=== PATIENT | male | born 1945 | race Hispanic/Latino ===

== ENCOUNTER → 2018-12-22 | Outpatient (CLI) | payer OTHER | END | disposition home or self-care (01) | LOC: SHCH 10:48 | PROVIDERS: ATTEND Internal Medicine Cardiovascular Disease | DX: I65.23 Occlusion and stenosis of bilateral carotid arteries (principal); I11.9 Hypertensive heart disease without heart failure; I35.8 Other nonrheumatic aortic valve disorders; R06.00 Dyspnea, unspecified | CPT/HCPCS: 93306; 93880 ==

== ENCOUNTER → 2019-01-04 | Outpatient (CLI) | payer OTHER ==
[~2019-01-04] MED LIST: ALBUTEROL SULFATE 0.083% 2.5 MG/3 ML INH IH ONE
== END | disposition home or self-care (01) ==
LOC: RESP 08:55
PROVIDERS: ATTEND Internal Medicine Cardiovascular Disease
DX: R06.00 Dyspnea, unspecified (principal)
CPT/HCPCS: 94060; 94727; 94729

== ENCOUNTER → 2019-02-20 | Outpatient (CLI) | payer OTHER ==
[~2019-02-20] VITALS: Ht 167.6 cm; Wt 81.6 kg
[~2019-02-20] MED LIST changes: -ALBUTEROL SULFATE 0.083% 2.5 MG/3 ML INH IH ONE; +REGADENOSON 0.4 MG/5 ML PF SYG IVP SCH
== END | disposition home or self-care (01) ==
LOC: SHCH 08:23
PROVIDERS: ATTEND Internal Medicine Cardiovascular Disease
DX: I25.10 Atherosclerotic heart disease of native coronary artery without angina pectoris (principal); I10 Essential (primary) hypertension
CPT/HCPCS: 78452; 93017; 96374; A9500 ×2; J2785

== ENCOUNTER 2019-03-09 05:34 | Observation (INO) | payer OTHER ==
[2019-03-06 13:06] VITALS: BP 178/87
[2019-03-06 13:15] LABS: BASOPHILS % (AUTO) 0.4 % (0.0-5.0); EOSINOPHILS % (AUTO) 1.3 % (0.0-8.0); HEMATOCRIT 38.1 % (42-54); LYMPHOCYTES % (AUTO) 29.5 % (21.0-51.0); MEAN CORPUSCULAR HEMOGLOBIN 32.8 pg (27.0-33.0); MEAN CORPUSCULAR HGB CONC 34.6 g/dL (32.0-36.0); MEAN CORPUSCULAR VOLUME 94.9 fL (79-99); MONOCYTES % (AUTO) 5.9 % (3.0-13.0); NEUTROPHILS % (AUTO) 62.9 % (40.0-77.0); PLATELET COUNT (AUTO) 195 K/uL (130-400); RED BLOOD CELL COUNT(AUTO) 4.01 MIL/uL (4.50-6.20); RED CELL DISTRIBUTION WIDTH 12.9 % (11.0-15.5); WHITE BLOOD COUNT (AUTO) 7.3 K/uL (4.8-10.8)
[2019-03-06 13:15] LABS: APPEARANCE,URINE Clear (CLEAR); BILIRUBIN,URINE Negative (NEGATIVE); COLOR,URINE Yellow (YELLOW); GLUCOSE, URINE (UA) Negative (NEGATIVE); KETONES,URINE Negative (NEGATIVE); LEUKOCYTE ESTERASE ,URINE Large (NEGATIVE); NITRATE,URINE Negative (NEGATIVE); OCCULT BLOOD,URINE Negative (NEGATIVE); PROTEIN,URINE Negative (NEGATIVE)
[2019-03-06 13:19] LABS: BACTERIA,URINE Rare /HPF (None Seen); RBC,URINE 0-1 /HPF (0-1); SQUAMOUS EPITHELIAL CELL,UR Rare /HPF (0-2)
[2019-03-06 13:27] LABS: INR 0.99 (0.85-1.15); PARTIAL THROMBOPLASTIN TIME 27.5 SEC (26.3-35.5); PROTHROMBIN TIME 10.4 SEC (9.6-11.6)
[2019-03-06 13:28] LABS: CREATININE 1.2 mg/dL (0.5-1.5); POTASSIUM 4.5 mmol/L (3.5-5.1)
--- NOTE | 2019-03-08 14:18 | NUR ---
ABNORMAL UA REPORTED TO DR. TERRAZAS, NO NEW ORDERS, PROCEED WITH PROCEDURE.
[2019-03-09] VITALS (10 sets, daily range): BP systolic 137–161; BP diastolic 70–86
[~2019-03-09] VITALS: Ht 170.2 cm; Wt 80.7 kg
[~2019-03-09 05:34] MED LIST changes: +AMLO2.5T4 PO; +ASPI-1012 PO; +FENO160T16 PO; +GABA-529 PO; +GLIP1TAB6 PO; +LOSA100T58 PO; +OMEP40CA37 PO; +PRAV40TA3 PO; -REGADENOSON 0.4 MG/5 ML PF SYG IVP SCH
[2019-03-09] MEDS ORDERED: SODIUM CHLORIDE 0.9% 1000ML 1,000 ML IV ONE (06:10)
--- NOTE | 2019-03-09 06:41 | NUR ---
BOTH PATIENT AND RECEIVED TEACHING ON EXPECTATIONS DURING STAY. BOTH VERBALIZED UNDERSTANDING. PATIENT DENIES ANY SOB OR CHEST PAIN AT THIS TIME.TEACHING ON IMPORTANCE POST PROCEDURE ON BEING ON BEDREST TO PREVENT BLEEDING AND TO USE CALL DEVLIN IS NEEDING ASSISTANCE. BOTH VERBALIZED UNDERSTANDING AND AGREED TO ALL.
[2019-03-09] MEDS ORDERED: LIDOCAINE HCL 2% 20ML ONE (07:11)
[2019-03-09] MEDS ORDERED: IOHEXOL-350 50ML VIAL IV ONE ×2 (07:11→08:16)
[2019-03-09] MEDS ORDERED: SODIUM BICARB 50MEQ 50ML VIAL ONE (07:11)
[2019-03-09] MEDS ORDERED: NITROGLYCERIN 5 MG/ML 10 ML VIAL IV ONE (07:11)
[2019-03-09] MEDS ORDERED: IOHEXOL 350 MG/ML 100ML INFUS..BTL IV ONE (07:11)
[2019-03-09] MEDS ORDERED: HEPARIN SODIUM 1000UNIT/ML 10ML VIAL ONE (07:11)
[2019-03-09] MEDS ORDERED: MEPERIDINE-PF 25 MG/ML SYG ONE (07:47)
[2019-03-09] MEDS ORDERED: MIDAZOLAM HCL 1 MG/ML 2ML VIAL ONE (07:47)
[2019-03-09] MEDS ORDERED: IOHEXOL-350 75 ML VIAL IV ONE (08:26)
[2019-03-09] MEDS ORDERED: CLOPIDOGREL BISULFATE 300 MG TAB ONE (08:58)
[2019-03-09] MEDS ORDERED: SODIUM CHLORIDE 0.9% 1000ML 1,000 ML IV SCH (09:07)
[2019-03-09] MEDS ORDERED: ACETAMINOPHEN-CODEINE 300/30MG TAB PO PRN ×2 (09:15)
[2019-03-09] MEDS ORDERED: ALPRAZOLAM 0.5 MG TABLET PO PRN (09:15)
[2019-03-09] MEDS ORDERED: ONDANSETRON HCL 4 MG/2 ML VIAL IVP PRN (09:15)
[2019-03-09] MEDS ORDERED: DEXTROSE 50%-WATER 50 ML DISP.SYRIN IV PRN (09:15)
--- NOTE | 2019-03-09 09:43 | NUR ---
STATUS PT RECEIVED FROM RESIDENTIAL SUPERVISOR VIA BED, S/P C STENT X [address] Lionel TERRAZAS. RT GROIN PER CLOSE, DSG DRY & INTACT. NO BLEEDING, NO HEMATOMA NOTED. PUNCTURES SITE SOFT, NON-TENDER. (+) STRONG PEDAL PULSES BILATERALLY. BLE PINK & WARM TO TOUCH. PT INFORMED TO MAINTAIN BEDREST X 8 HRS. A/O X 3. NO SOB. NO DISTRESS NOTED. DENIES CHEST PAIN OR DISCOMFORT. DENIES INCISIONAL PAIN. TELE: SR 60s. DENIES N/V AND/OR DIARRHEA. URINAL @ BEDSIDE. 0.9% NACL @ 100 ML/HR X 8 HRS. ORIENTED TO RM. SIDE RAILS UP X 4. BED @ LOWEST LEVEL. INSTRUCTED TO CALL FOR ASSISTANCE. CALL CLAUS W/IN REACH.
[2019-03-09] MEDS: INSULIN HUMULIN R 100 UNIT/ML 3ML SQ SCH ×2 (15:45→20:44)
[2019-03-09] MEDS: GABAPENTIN 100 MG CAPSULE PO SCH (20:29)
[2019-03-09] MEDS ORDERED: SIMVASTATIN 20 MG TABLET PO SCH (21:00)
[2019-03-09] MEDS ORDERED: PANTOPRAZOLE SODIUM 40 MG TABLET.DR PO SCH (21:00)
[2019-03-09] MEDS ORDERED: AMLODIPINE BESYLATE 2.5 MG TAB PO SCH (21:00)
[2019-03-10 03:00] VITALS: BP 137/70
[2019-03-10 03:50] LABS: HEMATOCRIT 35.7 % (42-54); MEAN CORPUSCULAR HEMOGLOBIN 33.3 pg (27.0-33.0); MEAN CORPUSCULAR HGB CONC 35.6 g/dL (32.0-36.0); MEAN CORPUSCULAR VOLUME 93.5 fL (79-99); PLATELET COUNT (AUTO) 187 K/uL (130-400); RED BLOOD CELL COUNT(AUTO) 3.82 MIL/uL (4.50-6.20); RED CELL DISTRIBUTION WIDTH 12.7 % (11.0-15.5); WHITE BLOOD COUNT (AUTO) 6.3 K/uL (4.8-10.8)
[2019-03-10 04:01] LABS: POTASSIUM 3.9 mmol/L (3.5-5.1)
[2019-03-10] MEDS: INSULIN HUMULIN R 100 UNIT/ML 3ML SQ SCH (06:32)
[2019-03-10 07:00] VITALS: BP 137/71
[2019-03-10] MEDS ORDERED: CLOPIDOGREL BISULFATE 75 MG TAB PO SCH (09:00)
[2019-03-10] MEDS ORDERED: FENOFIBRATE 160 MG PO SCH (09:00)
[2019-03-10] MEDS ORDERED: ASPIRIN 81MG TAB.CHEW PO SCH (09:00)
[2019-03-10] MEDS ORDERED: LOSARTAN 100 MG TABLET PO SCH (09:00)
[2019-03-10] MEDS: GABAPENTIN 100 MG CAPSULE PO SCH (09:32)
[2019-03-10 11:00] VITALS: BP 132/72
[2019-03-10] MEDS ORDERED: CLOP75TA14 PO (12:21)
[2019-03-10] MEDS ORDERED: AEC81 PO (12:21)
[2019-03-10] MEDS ORDERED: PANT40TA25 PO (12:22)
== END 2019-03-10 13:23 | disposition home or self-care (01) ==
LOC: DAH 05:34 → INTOOBSV 05:35 → DAH 05:35 → OBSVTOIN 05:35 → DAHIP 05:35 → 2DH 09:58
PROVIDERS: ADMIT Internal Medicine; ATTEND Internal Medicine
DX: I25.119 Atherosclerotic heart disease of native coronary artery with unspecified angina pectoris (principal); I10 Essential (primary) hypertension; E11.9 Type 2 diabetes mellitus without complications; E78.2 Mixed hyperlipidemia; K21.9 Gastro-esophageal reflux disease without esophagitis; Z79.899 Other long term (current) drug therapy; Z79.01 Long term (current) use of anticoagulants
CPT/HCPCS: 36415 ×2; 71045; 80048 ×2; 80061; 81001; 82948 ×5; 85025; 85027; 85610; 85730; 93005; 93458; 96372 ×2; A4606; C1725; C1760; C1769; C1874 ×3; C1887 ×2; C1894 ×2; C9600 ×2; G0378 ×32; J1644 ×2; J1815 ×2; J2175; J2250; J3490 ×3; J7030; Q9965; Q9967 ×3; 99156; 99157

== ENCOUNTER → 2019-08-17 | Outpatient (CLI) | payer OTHER ==
[~2019-08-17] MED LIST changes: +AEC81 PO; +ALBUTEROL SULFATE 0.083% 2.5 MG/3 ML INH IH ONE; -ASPI-1012 PO; +CLOP75TA14 PO; -OMEP40CA37 PO; +PANT40TA25 PO
== END | disposition home or self-care (01) ==
LOC: RESP 09:35
PROVIDERS: ATTEND Internal Medicine Cardiovascular Disease
DX: R06.02 Shortness of breath (principal)
CPT/HCPCS: 94060; 94727; 94729

== ENCOUNTER → 2019-09-11 | Outpatient (CLI) | payer OTHER ==
[~2019-09-11] MED LIST changes: -ALBUTEROL SULFATE 0.083% 2.5 MG/3 ML INH IH ONE
== END | disposition home or self-care (01) ==
LOC: SHCH 09-07 08:18
PROVIDERS: ATTEND Internal Medicine Cardiovascular Disease
DX: I11.9 Hypertensive heart disease without heart failure (principal)
CPT/HCPCS: 93306